=== PATIENT | female | born 1995 | race Two or more races ===

== ENCOUNTER → 2022-07-05 | Outpatient (CLI) | payer BC, OTHER ==
[2022-07-05 18:02] LABS: HEMATOCRIT 33.4 % (36.0-47.0); HEMOGLOBIN 11.8 g/dl (12.0-15.5); MEAN CORPUSCULAR HEMOGLOBIN 31.6 pg (27.0-33.0); MEAN CORPUSCULAR HGB CONC 35.3 g/dl (32.0-36.5); MEAN CORPUSCULAR VOLUME 89.3 fl (80.0-96.0); PLATELET COUNT, AUTOMATED 233 10^3/uL (150-450); RED BLOOD COUNT 3.74 10^6/uL (4.00-5.40); WHITE BLOOD COUNT 11.1 10^3/uL (4.0-10.0)
[2022-07-05 18:53] LABS: HIV 1&2 SCREEN CENTAUR NEGATIVE (NEGATIVE)
[2022-07-05 19:02] LABS: HEPATITIS C VIRUS ABY INDEX 0.1 INDEX (<0.8)
== END ==
LOC: M PLALAB 15:57
PROVIDERS: ATTEND Advanced Practice Midwife
DX: Z34.02 Encounter for supervision of normal first pregnancy, second trimester (principal)

== ENCOUNTER → 2022-08-05 | Outpatient (REF) | payer BC ==
[2022-08-05 15:22] LABS: GC DNA AMPLIFICATION NEGATIVE (NEGATIVE)
== END ==
LOC: M PLALAB 09:16
PROVIDERS: ATTEND Advanced Practice Midwife
DX: Z34.02 Encounter for supervision of normal first pregnancy, second trimester (principal)

== ENCOUNTER → 2022-09-02 | Outpatient (CLI) | payer BC, OTHER, MEDICAID | LOC: M WHC 14:06 | PROVIDERS: ATTEND Advanced Practice Midwife | DX: Z34.02 Encounter for supervision of normal first pregnancy, second trimester (principal); Z36.89 Encounter for other specified antenatal screening; Z3A.22 22 weeks gestation of pregnancy ==

== ENCOUNTER → 2022-09-21 | Outpatient (CLI) | payer BC, OTHER, MEDICAID ==
[2022-09-21 11:06] LABS: HEMATOCRIT 32.1 % (36.0-47.0); HEMOGLOBIN 10.9 g/dl (12.0-15.5); MEAN CORPUSCULAR HEMOGLOBIN 32.2 pg (27.0-33.0); MEAN CORPUSCULAR VOLUME 94.7 fl (80.0-96.0); PLATELET COUNT, AUTOMATED 196 10^3/uL (150-450); RED BLOOD COUNT 3.39 10^6/uL (4.00-5.40)
[2022-09-21 13:40] LABS: GC DNA AMPLIFICATION NEGATIVE (NEGATIVE)
== END ==
LOC: M PLALAB 07:35
PROVIDERS: ATTEND Specialist
DX: Z34.02 Encounter for supervision of normal first pregnancy, second trimester (principal)

== ENCOUNTER → 2022-10-04 | Outpatient (REF) | payer OTHER, MEDICAID, BC ==
[2022-10-04 15:45] LABS: GC DNA AMPLIFICATION NEGATIVE (NEGATIVE)
== END ==
LOC: M SFHCWAGY 12:44
PROVIDERS: ATTEND Advanced Practice Midwife
DX: O26.899 Other specified pregnancy related conditions, unspecified trimester (principal); N39.9 Disorder of urinary system, unspecified; Z3A.00 Weeks of gestation of pregnancy not specified

== ENCOUNTER → 2022-12-07 | Outpatient (REF) | payer BC, MEDICAID | LOC: M PLALAB 15:21 | PROVIDERS: ATTEND Advanced Practice Midwife | DX: Z36.85 Encounter for antenatal screening for Streptococcus B (principal) ==

== ENCOUNTER 2023-01-05 23:29 | Inpatient (IN) | payer BC, MEDICAID ==
[~2023-01-05] VITALS: Ht 162.6 cm; Wt 73.6 kg
[2023-01-05] MEDS ORDERED: OXYTOCIN 30UNITS IN 0.9% NaCl 500ML IV BAG As Ordered ONE (23:57)
[2023-01-06] VITALS (9 sets, daily range): BP systolic 119–142; BP diastolic 67–101; O2SAT 96–97
[2023-01-06 00:07] LABS: HEMATOCRIT 34.5 % (36.0-47.0); HEMOGLOBIN 11.8 g/dl (12.0-15.5); MEAN CORPUSCULAR HEMOGLOBIN 29.9 pg (27.0-33.0); MEAN CORPUSCULAR HGB CONC 34.2 g/dl (32.0-36.5); MEAN CORPUSCULAR VOLUME 87.3 fl (80.0-96.0); PLATELET COUNT, AUTOMATED 256 10^3/uL (150-450); RED BLOOD COUNT 3.95 10^6/uL (4.00-5.40); WHITE BLOOD COUNT 14.2 10^3/uL (4.0-10.0)
[2023-01-06] MEDS ORDERED: LIDOCAINE 1% MDV 20ML VIAL INFIL PRN (01:30)
[2023-01-06] MEDS ORDERED: METHYLERGONOVINE MALEATE 0.2MG/ML 1ML VIAL IM PRN (01:30)
[2023-01-06] MEDS ORDERED: OXYTOCIN DRIP 30 UNITS in IV 1 EA IV PRN (01:30)
[2023-01-06] MEDS ORDERED: TRANEXAMIC ACID INJection 1,000 MG in NS 100 ML IV PRN (01:30)
[2023-01-06] MEDS ORDERED: DIBUCAINE 1% OINTMENT 30GM TOP PRN (06:00)
[2023-01-06] MEDS ORDERED: OXYTOCIN DRIP 30 UNITS in IV 1 EA IV SCH (06:00)
[2023-01-06] MEDS ORDERED: ANUSOL HC CREAM 30GM TOP PRN (06:00)
[2023-01-06] MEDS ORDERED: MOM 30ML SUSPENSION UDC PO PRN (06:00)
[2023-01-06] MEDS ORDERED: IBUPROFEN 800 MG TAB PO PRN (06:00)
[2023-01-06] MEDS ORDERED: METHYLERGONOVINE MALEATE 0.2 MG TAB PO PRN (06:00)
[2023-01-06] MEDS ORDERED: ACETAMINOPHEN 500 MG TAB PO PRN (06:00)
[2023-01-06] MEDS ORDERED: RHOGAM 300MCG (1500IU) INJ IM SCH (06:00)
[2023-01-06] MEDS ORDERED: DOCUSATE SODIUM 100MG CAPSULE PO PRN (06:00)
[2023-01-06] MEDS: PRENATAL VITAMINS CHEWABLE TABLET PO SCH (12:11)
[2023-01-06] MEDS: ACETAMINOPHEN TAB 650MG DOSE (2X325MG) PO PRN ×2 (14:48→21:09)
[2023-01-06] MEDS ORDERED: PRENTAB9 PO (17:48)
[2023-01-06] MEDS ORDERED: HOME MED LIST COMPLETE! XX SCH (17:50)
[2023-01-07] MEDS: IBUPROFEN 600MG TAB PO PRN ×3 (00:42→14:35)
[2023-01-07 06:00] VITALS: BP 117/55; O2SAT 96
[2023-01-07] MEDS: PRENATAL VITAMINS CHEWABLE TABLET PO SCH (08:10)
[2023-01-07] MEDS: ACETAMINOPHEN TAB 650MG DOSE (2X325MG) PO PRN (15:45)
[2023-01-07 18:00] VITALS: BP 117/69; O2SAT 98
[2023-01-08] MEDS: IBUPROFEN 600MG TAB PO PRN ×2 (00:16→12:19)
[2023-01-08 06:00] VITALS: BP 118/76; O2SAT 99
[2023-01-08] MEDS ORDERED: MEASLES,MUMPS,RUBELLA VACCINE INJ (MMR-II) SC.IMMUN ONE (09:00)
[2023-01-08] MEDS: PRENATAL VITAMINS CHEWABLE TABLET PO SCH (09:00)
== END 2023-01-08 14:17 | disposition home or self-care (01) | DRG 560 ==
LOC: M LDO 23:29 → M LDI 23:41 → M OBS 01-06 08:20
PROVIDERS: ADMIT Obstetrics & Gynecology; ATTEND Obstetrics & Gynecology
PROC: 10E0XZZ Delivery of Products of Conception, External Approach (ICD-10-PCS; principal; 2023-01-06)
PROC: 0HQ9XZZ Repair Perineum Skin, External Approach (ICD-10-PCS; 2023-01-06)
DX: O48.0 Post-term pregnancy (principal); O70.0 First degree perineal laceration during delivery; Z37.0 Single live birth; Z3A.40 40 weeks gestation of pregnancy

== ENCOUNTER → 2023-05-22 | Outpatient (REF) | payer MEDICAID ==
[~2023-05-22] MED LIST: PRENTAB9 PO
== END ==
LOC: M SFHCWAGY 15:24
PROVIDERS: ATTEND Nurse Practitioner Family
DX: Z12.4 Encounter for screening for malignant neoplasm of cervix (principal)

== ENCOUNTER → 2025-02-04 | Outpatient (REF) | payer OTHER | LOC: M PLALAB 13:29 | PROVIDERS: ATTEND Obstetrics & Gynecology | DX: Z53.9 Procedure and treatment not carried out, unspecified reason (principal) ==

== ENCOUNTER → 2025-02-21 | Outpatient (CLI) | payer OTHER ==
[2025-02-21 13:02] LABS: PLATELET COUNT, AUTOMATED 215 10^3/uL (150-450)
[2025-02-21 14:03] LABS: HIV 1&2 SCREEN NEGATIVE (NEGATIVE)
[2025-02-21 14:12] LABS: HEPATITIS C VIRUS ABY INDEX < 0.02 INDEX (<0.8)
[2025-02-21 14:25] LABS: Trichomonas vaginalis (AMP) NOT DETECTED (NEGATIVE)
[2025-02-21 14:49] LABS: GC DNA AMPLIFICATION NEGATIVE (NEGATIVE)
== END ==
LOC: M PLALAB 10:53
PROVIDERS: ATTEND Obstetrics & Gynecology
DX: Z34.80 Encounter for supervision of other normal pregnancy, unspecified trimester (principal)

== ENCOUNTER → 2025-04-17 | Outpatient (CLI) | payer OTHER | LOC: M WHC 11:30 | PROVIDERS: ATTEND Obstetrics & Gynecology | DX: Z34.92 Encounter for supervision of normal pregnancy, unspecified, second trimester (principal); Z3A.20 20 weeks gestation of pregnancy ==

== ENCOUNTER → 2025-06-09 | Outpatient (CLI) | payer OTHER ==
[2025-06-09 13:56] LABS: GLUCOSE CHALLENGE TEST 1 HOUR 109 MG/DL (LESS THAN 140)
[2025-06-09 13:57] LABS: PLATELET COUNT, AUTOMATED 194 10^3/uL (150-450)
[2025-06-09 15:04] LABS: HIV 1&2 SCREEN NEGATIVE (NEGATIVE)
[2025-06-09 15:12] LABS: HEPATITIS C VIRUS ABY INDEX < 0.02 INDEX (<0.8); Trichomonas vaginalis (AMP) NOT DETECTED (NEGATIVE)
[2025-06-09 15:38] LABS: GC DNA AMPLIFICATION NEGATIVE (NEGATIVE)
== END ==
LOC: M PLALAB 09:12
PROVIDERS: ATTEND Obstetrics & Gynecology
DX: Z34.92 Encounter for supervision of normal pregnancy, unspecified, second trimester (principal)